=== PATIENT | female | born 1950 | race Caucasian/White ===

== ENCOUNTER 2019-06-15 13:42 | Emergency (ER) | payer MEDICARE, OTHER ==
[2019-06-15 14:09] VITALS: BP 156/89; PULSE 64
--- NOTE | 2019-06-15 14:18 | EDM.PDOC ---
ED HPI GENERAL MEDICAL PROBLEM - General Chief Complaint: Head Injury Stated Complaint: FALL/EYE INJURY Time Seen by Provider: 06/15/19 14:00 Source of Information: Reports: Patient, Family (spouse) History Limitations: Reports: No Limitations - History of Present Illness INITIAL COMMENTS - FREE TEXT/NARRATIVE: 69-year-old female presents to the ED for evaluation of facial injuries and closed head injury that occurred yesterday afternoon. She states it was a ledge in the sidewalk she was walking on that trip dropping forced her to fall face first into the sidewalk. She was wearing eyeglasses at the time which were damaged badly. She suffered marked ecchymoses around the upper and lower eyelid of the right side and cannot wear her glasses. Therefore her vision is off today. Complains of headache and mild nausea. Complains of diffuse cervical neck pain. Did not have any bleeding from the nose. Did not injure tongue or her teeth. She contused the palmar aspects of both hands particularly the thenar eminences without evidence of fracture in the wrist. She has bilateral prosthetic knees which are sore but she can still walk. As well as some pain in her right lateral rib cage. No significant pain on deep inspiration Onset: Sudden Onset Date: 06/14/19 Onset Time: 15:00 Duration: Hour(s):, Getting Worse Location: Reports: Head, Face, Neck, Upper Extremity, Left (Infusion thenar eminence and wrist), Upper Extremity, Right (Contusion thenar eminence and wrist ), Lower Extremity, Left (Contusion left knee), Lower Extremity, Right ( Contusion right knee), Radiates to Quality: Reports: Ache (Right bertha-face particularly in the distribution of the right maxillary sinus) Severity: Moderate Improves with: Reports: None Worsens with: Reports: None Context: Reports: Trauma (Tripped and fell on uneven sidewalk and fell face first into the concrete sidewalk). Denies: Activity, Exercise, Lifting, Sick Contact Associated Symptoms: Reports: Headaches. Denies: Confusion, Chest Pain, Cough, cough w sputum, Diaphoresis, Fever/Chills, Loss of Appetite, Malaise, Nausea/ Vomiting, Rash, Seizure, Shortness of Breath, Syncope Head Pain Score (Numeric/FACES): 8 - Related Data Allergies Allergy/AdvReac Type Severity Reaction Status Date / Time clindamycin Allergy Other Verified 06/15/19 14:14 Home Meds: Home Meds Levothyroxine [Synthroid] 50 mcg PO DAILY 06/15/19 [History] Omeprazole 20 mg PO DAILY 06/15/19 [History] Simvastatin 20 mg PO DAILY 06/15/19 [History] Venlafaxine [Effexor XR] 75 mg PO DAILY 06/15/19 [History] metFORMIN [Glucophage XR] 500 mg PO BID 06/15/19 [History] Past Medical History HEENT History: Reports: Impaired Vision (Wears glasses) - Past Surgical History Musculoskeletal Surgical History: Reports: Knee Replacement (Bilateral knee replacements) Social & Family History - Living Situation & Occupation Living situation: Reports: Occupation: Retired ED ROS GENERAL - Review of Systems Review Of Systems: See Below Constitutional: Denies: Fever, Chills, Malaise, Weakness, Fatigue, Decreased Appetite, Weight Loss HEENT: Reports: Glasses (Which were damaged badly from the fall and she can't wear them.), Other (Blurry vision right eye since fall). Denies: Contact Lenses Respiratory: Reports: Other Cardiovascular: Reports: Chest Pain (Some right lateral chest wall pain since fall), Blood Pressure Problem, Dyspnea on Exertion (Sometimes). Denies: Claudication, Edema, Lightheadedness, Orthopnea Endocrine: Reports: No Symptoms GI/Abdominal: Reports: No Symptoms : Reports: Frequency, Incontinence (Stress and urge components) Musculoskeletal: Reports: Back Pain, Joint Pain (Generalized arthritis. Involves both knees hips low back shoulders and neck.) Skin: Reports: Bruising Neurological: Reports: No Symptoms (Bruised around her right upper and lower eyelids since she fell yesterday.) Psychiatric: Reports: No Symptoms Hematologic/Lymphatic: Reports: No Symptoms Immunologic: Reports: No Symptoms ED EXAM, HEAD INJURY - Physical Exam Exam: See Below Exam Limited By: No Limitations General Appearance: Alert, WD/WN, Mild Distress, Other (Vital signs show temperature 36.3 heart rate is 64 and regular. Respiratory to 16 pulse ox 95% on room air. BP 156/89.) Head: Scalp Abrasions ( ecchymosis and abrasions.), Scalp Ecchymosis (Right frontal forehead), Facial Ecchymosis (He has marked ecchymoses of the supraorbital ridge the upper and lower eyelid of the right eye and tenderness over the maxillary sinus on the right side.). No: Scalp Lacerations, Scalp Swelling, Scalp Hematoma, Scalp Tenderness Nexus Criteria: Posterior, Midline Cervical Tenderness. No: Evidence of Intoxication, Altered Level of Consciousness, Focal Neurological Deficit, Painful Distraction Injuries Eyes: Bilateral Eye: Normal Fundi (No bleeding in the anterior posterior chambers.), Normal Inspection, PERRL Ears: Normal External Exam, Normal TMs Nose: Normal Inspection, Normal Mucousa, No Blood Throat/Mouth: Normal Inspection, Normal Lips, Normal Oropharynx, Other (No dental or tongue injury.) Neck: Normal Alignment, Limited Range of Motion, Paraspinous Muscle Tender, Tenderness (Tic on the left side from C4-C7.), Tender Lateral (Bilateral but worse on the left side as compared to the right.) Respiratory: No Respiratory Distress, Lungs Clear, Normal Breath Sounds, No Accessory Muscle Use, Other (From compression of her sternum and ribs did not) Cardiovascular: Normal Peripheral Pulses ( give her much pain or discomfort.), Regular Rate, Rhythm, No Edema, No Gallop, No Murmur, No Rub GI/Abdominal Exam: Normal Bowel Sounds, Soft, Non-Tender, No Organomegaly, No Abnormal Bruit, No Mass Back Exam: Normal Inspection, Decreased Range of Motion Extremities: Other (Some swelling over the thenar eminences of both hands but firm palpation of the wrists and hands reveals no evidence clinically of fractured bones. No pain on firm palpation over both knees. She has prosthetic knees bilaterally.) Neurologic: No Motor/Sensory Deficits, Alert, Normal Mood/Affect, Oriented x 3 Skin: Normal Color, Warm/Dry - Arun Coma Score Best Eye Response (Chauncey): (4) Open Spontaneously Best Verbal Response (Arun): (5) Oriented Best Motor Response (Chauncey): (6) Obeys Commands Chauncey Total: 15 Course - Vital Signs Last Recorded V/S: Last Vital Signs Temp 36.3 C 06/15/19 14:04 Pulse 64 06/15/19 14:04 Resp 16 06/15/19 14:04 BP 156/89 H 06/15/19 14:04 Pulse Ox 95 06/15/19 14:04 - Radiology Interpretation Free Text/Narrative:: 69-year-old female presents to the ED after falling yesterday outside on the sidewalk. She tripped over an uneven surface of the sidewalk causing her to fall face first into the concrete. She broke her eyeglasses and has marked ecchymoses and swelling of the upper and lower eyelids and supraorbital ridge of the right eye and abrasions and swelling of her right forehead. She has pain over the right maxillary sinus. Pain throughout the cervical spine particularly left lower neck. The thenar eminences of both hands but clinically no fractures of the wrist. Contusions to both knees which have been replaced but clinically no fractures. Plan she will have CT maxillofacial bones head and neck. - Re-Assessments/Exams Free Text/Narrative Re-Assessment/Exam: 06/15/19 15:30 CT head reveals mild periventricular small vessel ischemic changes compatible with small vessel demyelination. There is no intracranial bleeding or mass effect and no skull fracture. CT cervical spine reveals advanced degenerative changes at multiple levels particularly facet joints C3- C7 bilaterally. Gender changes appreciated between the dens and the anterior arch of C1. There is severe disc degeneration at C5-C6 level with anterior and posterior osteophytes. Minimal anterior osteophytes are noted at C4-5 and C5-C6 levels. There is minimal left-sided neural foraminal stenosis at C6-7 level. All the other neural foramina appear to be patent.. She was identified. CT of the maxillofacial bones reveals no fractures in the right periorbital or maxillary sinus area. Fractures identified at all in the maxillofacial structures. Treatment is therefore conservative. Departure - Departure Time of Disposition: 15:33 Disposition: Home, Self-Care 01 Condition: Fair Clinical Impression: Fall Qualifiers: Encounter type: initial encounter Qualified Code(s): W19.XXXA - Unspecified fall, initial encounter Sprain of cervical neck Qualifiers: Encounter type: initial encounter Qualified Code(s): S13.9XXA - Sprain of joints and ligaments of unspecified parts of neck, initial encounter Periorbital contusion of right eye Qualifiers: Encounter type: initial encounter Qualified Code(s): S05.11XA - Contusion of eyeball and orbital tissues, right eye, initial encounter - Discharge Information *PRESCRIPTION DRUG MONITORING PROGRAM REVIEWED*: Not Applicable *COPY OF PRESCRIPTION DRUG MONITORING REPORT IN PATIENT AL: Not Applicable Instructions: Facial or Scalp Contusion, [id number] Referrals: Brown Pyle MD [Primary Care Provider] - Forms: ED Department Discharge Additional Instructions: Evaluation the emergency room today in regards to injuries sustained from a fall yesterday. Blunt force trauma to the right face occurred when you fell on the sidewalk. All today and contusion to the right periorbital tissues including upper and lower eyelids in the right supraorbital ridge. Over the maxillary sinus on the right side. There is no evidence of any damage to the right eye itself. ET of the maxillofacial bones reveal no fractures around the eye socket or the right maxillary sinus area. CT of the brain is within normal limits showing no intracranial bleeding or mass effect or skull fracture. 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 No broken bones in the neck were identified. Expect increased stiffness and soreness in your neck over the next 48 hours or so. Take Motrin or Aleve if needed for inflammation and pain relief. The swelling and bruising around her I will take 7-14 days to resolve completely..
--- NOTE | 2019-06-15 15:27 | CT ---
CT cervical spine Technique: Multiple axial sections through the cervical spine were obtained. Study was obtained from above C1 inferiorly to the bottom of T1. Reconstructed sagittal and coronal images were reviewed. Comparison: No prior cervical spine study is available. Findings: Degenerative change is noted between the dens and anterior arch of C1. Mild disc space narrowing is noted at C3-4 with disc calcification. Severe disc space narrowing is noted at C5-6 with anterior and posterior osteophytes. Minimal anterior osteophytes are noted at C4-5 and C5-6. Degenerative apophyseal change is seen throughout the cervical spine. Minimal left-sided neural foraminal stenosis is seen at C6-7. Other neural foramina are patent. No bony central canal stenosis is seen. No fracture is appreciated. No abnormal subluxation is seen. Impression: 1. Degenerative change as noted above. 2. No acute fracture or abnormal subluxation is appreciated. Diagnostic code #2 This report was dictated in [place] Standard Time
--- NOTE | 2019-06-15 15:27 | CT ---
CT facial bones Technique: Multiple axial sections through the facial bones were obtained. Reconstructed coronal and sagittal images were reviewed. Findings: Small retention cysts measuring less than 1 cm are seen within both maxillary sinuses. Minimal mucosal thickening is noted within the inferior left maxillary sinus. Other paranasal sinuses are clear. No air-fluid levels are seen within the paranasal sinuses. Right and left globes are symmetric in size. No retrobulbar abnormality is noted. No facial bone fracture is seen. Impression: 1. Minimal sinus findings which are chronic. 2. Nothing acute is appreciated on CT study of the facial bones. Diagnostic code #2 This report was dictated in [place] Standard Time
--- NOTE | 2019-06-15 15:27 | CT ---
Head CT Technique: Multiple axial sections through the brain were obtained. Intravenous contrast was not utilized. Comparison: No prior intracranial imaging is available. Findings: Ventricles along with basal cisterns and sulci over the convexities appear within normal limits for the patient's age. No abnormal parenchymal densities are seen. No evidence of intracranial hemorrhage. No midline shift or mass effect is seen. Bone window settings were reviewed which show no acute finding within the visualized paranasal sinuses. Mastoid sinuses are clear. No acute calvarial abnormality is appreciated. Impression: 1. Nothing acute is appreciated on noncontrast head CT study. Diagnostic code #1 This report was dictated in [place] Standard Time
== END 2019-06-15 15:54 | disposition home or self-care (01) ==
LOC: JD.ED 13:42
DX: S13.4XXA Sprain of ligaments of cervical spine, initial encounter (principal); S05.11XA Contusion of eyeball and orbital tissues, right eye, initial encounter; Z88.1 Allergy status to other antibiotic agents; Z79.899 Other long term (current) drug therapy; W01.10XA Fall on same level from slipping, tripping and stumbling with subsequent striking against unspecified object, initial encounter
CPT/HCPCS: 70450; 70450-26; 70486; 70486-26; 72125; 72125-26; 99283; 99283-25